=== PATIENT | female | born 1950 | race Caucasian/White ===

== ENCOUNTER 2020-12-08 15:50 | Emergency (ER) | payer OTHER, MEDICARE ==
[2020-12-08 16:14] LABS: RED BLOOD COUNT 2.04 M/UL (4.00-5.10); WHITE BLOOD COUNT 12.9 K/UL (4.5-11.0)
[2020-12-08 16:22] LABS: HEMOGLOBIN 6.6 gm/dl (12.3-15.3)
== END 2020-12-08 16:35 | disposition expired ==
LOC: ER1 15:50
PROVIDERS: Family Medicine
DX: I46.9 Cardiac arrest, cause unspecified (principal); I95.9 Hypotension, unspecified; J18.9 Pneumonia, unspecified organism; E87.2 Acidosis; D64.9 Anemia, unspecified; Z89.611 Acquired absence of right leg above knee
CPT/HCPCS: 31500; 36600; 71045; 80053; 82550; 82553; 82803; 83605; 83690; 83735; 83874; 84439; 84443; 84484; 85025; 85610; 86850; 86900; 86901; 92950; 94002; 99285; J0171; J0461; J7040